=== PATIENT | female | born 2000 | race Caucasian/White ===

== ENCOUNTER 2019-11-08 23:29 | Emergency (ER) | payer OTHER ==
[~2019-11-08] VITALS: Ht 160 cm; Wt 63.5 kg
[2019-11-09 00:16] VITALS: BP 148/97
== END 2019-11-09 00:16 | disposition home or self-care (01) ==
LOC: M.ERS 23:29
DX: S61.210A Laceration without foreign body of right index finger without damage to nail, initial encounter (principal); W26.0XXA Contact with knife, initial encounter; Y93.89 Activity, other specified; Y92.89 Other specified places as the place of occurrence of the external cause; Y99.8 Other external cause status